=== PATIENT | male | born 1955 | race Caucasian/White ===

== ENCOUNTER 2023-09-17 13:36 | Emergency (ER) | payer BC, SELFPAY ==
[2023-09-17 13:39] VITALS: BP 122/74
--- NOTE | 2023-09-17 14:07 | ED.GENMED ---
History of Present Illness
General
Chief Complaint: Urinary Symptoms
Source: patient
Time Seen by Provider: 09/17/23 13:56
Travel History
Have you had any contact with someone who has COVID-19?: No
Do you have any symptoms of coronavirus? Fever > 100 degrees, chills, cough, shortness of breath, sore throat, loss of taste or smell, muscle aches, or headache?: No
History of Present Illness
History of Present Illness:
67-year-old male with past medical history of chronic kidney disease presenting to the emergency department for evaluation of urinary frequency, urgency and dysuria x 2 days that feels similar to previous urinary tract infection that patient had
back in September 2021. He denies any back or flank pain, nausea, vomiting, fevers, chills, rigors or any other concerns. Has not attempted any medications for relief prior to arrival.
Past History
Past History
ED Past Medical History: Renal failure and Other (CKD)
ED Past Surgical History: Orthopedic, Tonsilectomy and Other
Social History
Tobacco: Non-smoker
Alcohol: None
Drug: None
Personal: Single
Living: alone
Review of Systems
Review of Systems
All Other Systems: ROS reviewed and negative except as documented in HPI and ROS
Phy Exam
Physical Exam
Physical Exam:
GENERAL: Alert , in no apparent distress
EYE: conjunctiva clear
NECK: Supple
ENT: o/p clr, mmm.
CARDIAC: Regular rate and rhythm
LUNGS: Clear breath sounds bilaterally, no acute respiratory distress, no wheezes/rales/rhonchi
Abdomen: Soft, nontender, nondistended, no CVA tenderness
NEUROLOGICAL: Alert and oriented
SKIN: Warm and dry, skin intact.
MUSCULOSKELETAL: well perfused.
PSYCH: Normal and appropriate interaction.
Scores
Heart Failure Risk
Heart Failure Risk Score: Not Applicable
Heart Score for Chest Pain Patients
STEMI patient?: Not applicable
Withdrawal Assessment of Alcohol
Withdrawal Assessment Completed?: Not applicable
Course
Orders/Labs/Results
Orders:
Orders
09/17/23 14:05
Urinalysis Reflex To Culture Urgent
Date Specimen was Collected: 09/17/23
Time Specimen was Collected: 14:00
Urine Microscopic Reflex Cult Urgent
Urine Culture Urgent
DYAN Source: U
Specimen Description:
Date Specimen was Collected: 09/17/23
Time Specimen was Collected: 14:00
09/17/23 14:24
Sulfamethox./Trimethoprim Ds [Bactrim Ds 800 mg/160 mg] 1 tablet PO NOW STA
Abnormal Lab Results
09/17/23
14:05
Ur Occult Blood Reflex 4+ A
(Negative)
Urine Nitrite (Reflex) Positive A
(Negative)
Leukocyte Esterase Rfl 2+ A
(Negative)
Urine RBC 16-20 A /HPF
(0-2)
Urine WBC (Reflex) >100 A /HPF
(0-5)
Urine Bacteria (Reflex) Moderate A
(Negative)
Urine Albumin (Reflex) 2+ A
(Neg - Trace)
Vital Signs
Initial and Last Documented VS:
Initial Vital Signs
Temp Pulse Resp BP Pulse Ox
98.4 F 65 18 122/74 100
09/17/23 13:39 09/17/23 13:39 09/17/23 13:39 09/17/23 13:39 09/17/23 13:39
Last Documented Vital Signs
Temp Pulse Resp BP Pulse Ox
98.4 F 65 18 122/74 100
09/17/23 13:39 09/17/23 13:39 09/17/23 13:39 09/17/23 13:39 09/17/23 13:39
MDM/Problems Addressed
Differential Diagnosis Includes:
Urinary tract infection, cystitis, pyelonephritis, worsening of chronic kidney disease, urinary retention
MDM/Problems Addressed:
67-year-old male presenting the emergency department for evaluation of urinary frequency/urgency/dysuria x 2 days. Feels similar to previous urinary tract infection. No other systemic symptoms or signs of infection. Patient is overall
well-appearing with reassuring physical exam. Noted history for chronic kidney disease. Will check a urinalysis. Reassessment following. Patient states that his GFR on blood work within the last 6 months was 39.
Chronic conditions affecting care: Kidney disease
*Pulse Oximetry
Patient hypoxic: no
*Critical Care Note
Total Time (30-74mins, 75-104mins- exclusive of procedures): Not Applicable
Patient Management
Escalation/DeEscalation of care consider admission/obs:
Patient's urinalysis shows nitrite positive, 2+ leukocyte esterase, greater than 100 WBCs and 4+ hematuria. Will treat for urinary tract infection with Bactrim. No previous cultures on record. Pyridium also given for bladder spasm/pain. Patient
will follow-up with primary care provider. Aware of return precautions.
ED Attending Note
-
Portions of this chart may have been created with voice recognition software.� Occasional wrong word or��sound alike� substitutions may have occurred due to the inherent limitations of voice recognition software.
Discharge Plan
Departure
Patient Disposition: Home (Routine Discharge)
Date of Disposition: 09/17/23
Time of Disposition: 14:18
Patient with high blood pressure during this ER visit?: No
Discharge Problem:
Urinary tract infection
Instructions: Urinary Tract Infection, Adult (DC)
Prescriptions:
New
sulfamethoxazole-trimethoprim [Bactrim DS] 800-160 mg tablet
1 tab PO BID 7 Days Qty: 14 0RF
phenazopyridine [Pyridium] 200 mg tablet
200 mg PO TID PRN (Reason: Pain) Qty: 6 0RF
No Action
brinzolamide 1 % Drops,Suspension
1 drp BOTH EYES TID
Laxative (bisacodyl) 5 mg Tablet
5 mg PO DAILY
melatonin 5 mg Tablet
15 mg PO HS
Linzess 290 mcg Capsule
290 mcg PO DAILY
potassium chloride 20 mEq Tablet Extended Release
40 meq PO DAILY
Senna Plus 8.6-50 mg Capsule
3 tab PO DAILY
Interventions
Interventions:
*General Assessment Last Done: 09/17/23 13:39
*ED COVID-19 Vaccine History Last Done: 09/17/23 13:39
Discharge Date and Time
Print Language: ESTONIAN
[2023-09-17 14:14] LABS: Urine Albumin 2+ (Neg - Trace); Urine Bilirubin Negative (Negative); Urine Character Clear (Clear); Urine Color Yellow; Urine Glucose Negative (Negative); Urine Ketone Negative (Negative); Urine Leukocyte 2+ (Negative); Urine Nitrite Positive (Negative); Urine Occult Blood 4+ (Negative); Urine Urobilinogen Negative (Neg - 1+)
[2023-09-17 14:26] LABS: Urine Squamous Cell 0-2 /LPF (Few)
[2023-09-17 14:27] LABS: Urine Bacteria Moderate (Negative); Urine Red Blood Cell 16-20 /HPF (0-2); Urine White Cell >100 /HPF (0-5)
[2023-09-17] MEDS: BACTRIM DS 800 MG/160 MG 1 TABLET PO (14:40)
== END 2023-09-17 15:05 | disposition home or self-care (01) ==
LOC: EMR 13:36
PROVIDERS: Physician Assistant Medical; EMERGENCY PHYSICIAN Emergency Medicine
DX: N39.0 Urinary tract infection, site not specified (principal); N32.89 Other specified disorders of bladder; N19 Unspecified kidney failure; Z87.440 Personal history of urinary (tract) infections
CPT/HCPCS: 99283; 81003; 81015; 87077; 87086; 87186

== ENCOUNTER 2023-09-20 13:32 | Emergency (ER) | payer BC, MEDICARE, SELFPAY ==
[2023-09-20 13:41] VITALS: BP 126/75
--- NOTE | 2023-09-20 14:51 | CON.ID ---
Consultation
-
Date/Time Consultation Requested: 09/20/23 14:23
Date/Time Consultation Performed: 09/20/23 14:51
Requesting Provider: Elizabeth Villeda
Performing Provider: Dr Hoffman
Reason for Consultation: prostatitis
Chief Complaint / Past History
Chief Complaint
dysuria
History of Present Illness
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 Found to have UTI and initially started on bactrim
then found to have MDRO pseudomonas and I was called for antibiotic recs.
No recent antibiotics, no extended time in health care settings, not around farm animals, doesnt have sex with other men, no getting antibiotics from other countries.
Since presentation here no recorded fevers, bp stable wbc 5.7, no left shift, cr 1.8 unknown baseline, ua 09/16 >100 wbc/hpf, urine culture 100k Pseudomonas, patient had a dose of meropenem at my recommendation.
Past History
Additional Past Medical History:
CKD
Additional Past Surgical History:
orthopedic, tonsillectomy
Allergy History:
No Known Allergies Allergy (Verified 09/17/23 13:42)
Medications Reviewed: Yes
Social History
Tobacco: Non-Smoker
Alcohol: None
Drug: None
Family History
Family History: Not Pertinent
Review of Systems
Review of Systems
General: Negative Fever or Chills
All systems: All other systems were reviewed and were negative
Vital Signs
Temp Pulse Resp BP Pulse Ox
98 F 55 18 126/75 99
09/20/23 13:41 09/20/23 13:41 09/20/23 13:41 09/20/23 13:41 09/20/23 13:41
Physical Exam
Physical Exam
Constitutional: No Acute Distress
Cardiovascular: Regular Rate and S1/S2; Negative Murmur or Rub
Pulmonary: Clear and Symmetric; Negative Wheezes, Rales or Rhonchi
Gastrointestinal: Soft, Non Tender, Non Distended and Normal Bowel Sounds
Genito-Urinary: Suprapubic Tenderness; Negative CVA Tenderness
Skin: Warm and Dry; Negative Rash or Jaundice
Microbiology Results
Urine Culture Final 09/20/23-839
CC: Greater than 100,000 CFU/ML Pseudomonas aeruginosa
Organism 1 Pseudomonas aeruginosa
1. Pseudomonas aeruginosa
M.I.C. RX
--------- ---
Cefepime 8 S
Ceftazidime 8 S
Ciprofloxacin >2 R
Gentamicin >8 R
Levofloxacin >4 R
Meropenem 2 S
Piperacillin/Tazobactam <=16 S
Tobramycin 8 I
Assessment / Plan
Prostatitis due to MDRO Pseudomonas
- plan 2 weeks of IV meropenem
- midline
- my office is setting up home IV antibiotics
- follow up PRN
Care Review
Plan reviewed with: Other Provider ([employer]IB[employer] TAKER OFF - Day; abx plan)
--- NOTE | 2023-09-20 15:06 | ED.GENMED ---
History of Present Illness
General
Chief Complaint: Urinary Symptoms
Time Seen by Provider: 09/20/23 15:05
Travel History
Have you had any contact with someone who has COVID-19?: No
Do you have any symptoms of coronavirus? Fever > 100 degrees, chills, cough, shortness of breath, sore throat, loss of taste or smell, muscle aches, or headache?: No
History of Present Illness
History of Present Illness:
67-year-old male returns to the emergency department for initiation of IV antibiotics due to a Pseudomonas UTI with complicated resistance pattern. Infectious disease has been made aware and the patient is to have midline IV placement and be set up
for outpatient infusions. He reports worsening dysuria despite outpatient antibiotics
Past History
Past History
ED Past Medical History: Renal failure and Other (CKD)
ED Past Surgical History: Orthopedic, Tonsilectomy and Other
Social History
Tobacco: Non-smoker
Alcohol: None
Drug: None
Personal: Single
Living: alone
Review of Systems
Review of Systems
Allergies reviewed?: Yes
All Other Systems: ROS reviewed and negative except as documented in HPI and ROS
Phy Exam
Physical Exam
Physical Exam:
GEN: Well appearing, NAD, WDWN
HEENT: Oral mucosa moist, no scleral icterus
Cardiac: Regular rate
Lung: No respiratory distress, no tachypnea
MSK: No gross deformity or injuries
Skin: Good color, no pallor or jaundice, no rashes
Neuro: AO x3, moves all extremities freely
Psych: Calm, cooperative
Course
Orders/Labs/Results
Orders:
Orders
09/20/23 14:23
INFECTIOUS DISEASE CONSULT Urgent
Consulting Provider: Kera Hoffman
Was physician already notified: Yes
Reason for consult: UTI
09/20/23 14:47
Midline IV As Directed
Comment:: urgent, discharge dependent
09/20/23 15:03
Complete Blood Count/With Diff Urgent
Comprehensive Metabolic Panel Urgent
09/20/23 15:27
Meropenem [Merrem] 2,000 mg 0.9% Sodium Chloride 100 ml [Nss] 60 ml IV NOW
Abnormal Lab Results
09/20/23
15:03
RBC 3.78 L 10^6/uL
(4.70-6.10)
Hgb 12.4 L g/dL
(13.0-18.0)
Hct 36.3 L %
(39.0-52.0)
MCV 96.0 H fL
(80.0-94.0)
MCH 32.8 H pg
(27.0-31.0)
Chloride 108 H mmol/L
(98-107)
Carbon Dioxide 18 L mmol/L
(22-30)
BUN 31 H mg/dl
(9-20)
Creatinine 1.8 H mg/dL
(0.7-1.3)
09/20/23 15:03
09/20/23 15:03
Vital Signs
Initial and Last Documented VS:
Initial Vital Signs
Temp Pulse Resp BP Pulse Ox
98 F 55 18 126/75 99
09/20/23 13:41 09/20/23 13:41 09/20/23 13:41 09/20/23 13:41 09/20/23 13:41
Last Documented Vital Signs
Temp Pulse Resp BP Pulse Ox
98 F 57 18 97/68 100
09/20/23 13:41 09/20/23 17:38 09/20/23 13:41 09/20/23 17:38 09/20/23 17:38
MDM/Problems Addressed
MDM/Problems Addressed:
Patient seen in consultation by infectious disease and outpatient antibiotic infusions coordinated by ID as well as case management. Patient is clinically stable and labs are reassuring, no indication for hospitalization
*Critical Care Note
Total Time (30-74mins, 75-104mins- exclusive of procedures): Not Applicable
ED Attending Note
-
Portions of this chart may have been created with voice recognition software.� Occasional wrong word or��sound alike� substitutions may have occurred due to the inherent limitations of voice recognition software.
Discharge Plan
Departure
Patient Disposition: Home (Routine Discharge)
Date of Disposition: 09/20/23
Time of Disposition: 17:17
Patient with high blood pressure during this ER visit?: No
Discharge Problem:
Pseudomonas urinary tract infection
Instructions: Urinary Tract Infection, Adult (DC), How to care for a midline IV catheter
Prescriptions:
No Action
brinzolamide 1 % Drops,Suspension
1 drp BOTH EYES TID
Laxative (bisacodyl) 5 mg Tablet
5 mg PO DAILY
melatonin 5 mg Tablet
15 mg PO HS
Linzess 290 mcg Capsule
290 mcg PO DAILY
potassium chloride 20 mEq Tablet Extended Release
40 meq PO DAILY
Senna Plus 8.6-50 mg Capsule
3 tab PO DAILY
sulfamethoxazole-trimethoprim [Bactrim DS] 800-160 mg tablet
1 tab PO BID 7 Days Qty: 14 0RF
phenazopyridine [Pyridium] 200 mg tablet
200 mg PO TID PRN (Reason: Pain) Qty: 6 0RF
Referrals:
UNKNOWN - PT DOES,NOT KNOW [Family Provider] -
Activity Restrictions/Additional Instructions:
Flush the line with saline syringe once daily
You will be contacted tomorrow regarding outpatient infusion of antibiotics
Interventions
Interventions:
*Risk Screen - Suicide Last Done: 09/20/23 16:42
*Neglect/Abuse Screening Last Done: 09/20/23 16:42
*Nursing Disposition Last Done: 09/20/23 17:40
ED-Male Genitourinary Assessment Last Done: 09/20/23 16:42
Discharge Date and Time
Discharge Date/Time: 09/20/23 17:40
Print Language: ETHIOPIAN
[2023-09-20 15:28] LABS: % Basophils 0.4 % (0-2); % Eosinophils 1.8 % (0-6); % Immature Granulocytes 0.2 % (0-0.5); % Lymphocytes 21.9 % (20.5-51.1); % Monocytes 7.4 % (1.7-9.3); % Neutrophils 68.3 % (42.2-75.2); Absolute Eosinophils 0.1 10^3/uL (0-0.7); Absolute Lymphocytes 1.2 10^3/uL (1.2-3.4); Absolute Monocytes 0.4 10^3/uL (0.1-0.6); Absolute Neutrophils 3.9 10^3/uL (1.4-6.5); Hematocrit 36.3 % (39.0-52.0); Hemoglobin 12.4 g/dL (13.0-18.0); Mean Corp Hgb Conc. 34.2 g/dL (33.0-37.0); Mean Corpuscular Hgb 32.8 pg (27.0-31.0); Nucleated Red Blood Cells % 0 % (-); Platelet Count 210 10^3/uL (130-400); Red Blood Cell Count 3.78 10^6/uL (4.70-6.10); Red Cell Dist. Width 13.1 % (11.5-14.5); White Blood Cell Count 5.7 10^3/uL (4.8-10.8)
[2023-09-20 15:43] LABS: ALT (SGPT) 24 U/L (0-50); AST (SGOT) 29 U/L (17-59); Alkaline Phosphatase 87 U/L (38-126); Blood Urea Nitrogen 31 mg/dl (9-20); Calcium 9.2 mg/dl (8.4-10.2); Carbon Dioxide 18 mmol/L (22-30); Chloride 108 mmol/L (98-107); Glucose 97 mg/dl (70-99); Potassium 3.9 mmol/L (3.5-5.1); Sodium 137 mmol/L (135-145); Total Bilirubin 0.3 mg/dl (0.2-1.3); eGFR 41.26
[2023-09-20] MEDS: MERREM 100 MG IV (15:51)
--- NOTE | 2023-09-20 17:17 | CM ---
Alert awake oriented patient who lives alone . Currently he needs to get home because he is watching dogs at [address], [place]. He is independent in driving and all ADLs. Confirmed with patient KRYSTA Alonzo is his primary with pt and
admission dept at . He is still working and has part A with Medicare only. Spoke with Wandy at [facility] [phone]. Additional information given to [facility] Ht 6-2 and wt 160lb., last 4 digits of SS #, Midline placed information faxed .
He uses no adaptive devices.
He has never needed VN nor SNF hx.
Pharmacy [facility]
PCP from [facility] He forgets the name
PLAN Home with [facility] Maggie to contact patient tomorrow with his Out of pocket and start antibiotics infusion teaching
Spoke with patient informed that [facility] to let him know cost of med and teach him infusion tomorrow.Pt agrees with plan .
[2023-09-20 17:38] VITALS: BP 97/68
== END 2023-09-20 17:40 | disposition home or self-care (01) ==
LOC: EMR 13:32
PROVIDERS: CONSULT PHYSICIAN Student in an Organized Health Care Education/Training Program; EMERGENCY PHYSICIAN Student in an Organized Health Care Education/Training Program
DX: N39.0 Urinary tract infection, site not specified (principal); B96.5 Pseudomonas (aeruginosa) (mallei) (pseudomallei) as the cause of diseases classified elsewhere
CPT/HCPCS: 36569; 99285; 96374; 80053; 85025; J2185

== ENCOUNTER 2023-09-22 13:45 | Emergency (ER) | payer BC, MEDICARE, SELFPAY ==
[2023-09-22 13:57] VITALS: BP 120/61
[2023-09-22 14:23] LABS: Urine Albumin Trace (Neg - Trace); Urine Bilirubin Negative (Negative); Urine Character Very Cloudy (Clear); Urine Color Yellow; Urine Glucose Negative (Negative); Urine Ketone Trace (Negative); Urine Leukocyte 2+ (Negative); Urine Nitrite Negative (Negative); Urine Occult Blood 4+ (Negative); Urine Specific Gravity 1.025 (<1.030); Urine Urobilinogen Negative (Neg - 1+)
[2023-09-22 14:43] LABS: Urine Bacteria Few (Negative); Urine Squamous Cell 0-2 /LPF (Few)
[2023-09-22 14:44] LABS: Urine Red Blood Cell 50-60 /HPF (0-2); Urine White Cell 16-20 /HPF (0-5)
[2023-09-22] MEDS: TYLENOL 1000 MG PO (15:36)
[2023-09-22 15:38] VITALS: BMI 21.4
--- NOTE | 2023-09-22 15:40 | ED.GENMED ---
History of Present Illness
General
Chief Complaint: Male Genito-Urinary Symptoms
Source: patient and records
Exam Limitations: none
Time Seen by Provider: 09/22/23 15:05
Nursing documentation reviewed up to this point in time: agreed with
Travel History
Have you had any contact with someone who has COVID-19?: No
Do you have any symptoms of coronavirus? Fever > 100 degrees, chills, cough, shortness of breath, sore throat, loss of taste or smell, muscle aches, or headache?: No
History of Present Illness
History of Present Illness:
Patient is a 67-year-old male who returns to the emergency department for right flank and back pain that started today. Patient denies fever. Patient was seen 2 days ago and had a consult with infectious disease after having Pseudomonas in his
urine. Patient continues to have dysuria, frequency and urgency. Patient has difficulty urinating. Patient does have a history of kidney stones and kidney disease. Patient denies hematuria. Patient denies any nausea, vomiting or diarrhea.
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 Patient is on IV antibiotics through infectious disease.
Past History
Past History
ED Past Medical History: Renal failure and Other (CKD)
ED Past Surgical History: Orthopedic, Tonsilectomy and Other
Social History
Tobacco: Non-smoker
Alcohol: None
Drug: None
Personal: Single
Living: alone
Review of Systems
Review of Systems
All Other Systems: ROS reviewed and negative except as documented in HPI and ROS
Constitutional: Denies fever or chills
Respiratory: Reports no symptoms
Cardiac: Reports no symptoms
ABD/GI: Reports abdominal pain; Denies nausea, vomiting, diarrhea or constipated
: Reports dysuria, frequency, flank pain, difficulty voiding and urgency; Denies bleeding
Musculoskeletal: Reports back pain
Skin: Reports no symptoms
Neurological: Reports no symptoms
Hematologic/Lymphatic: Reports no symptoms
Psychiatric: Reports no symptoms
Phy Exam
Physical Exam
Physical Exam:
Physical Exam
General: mild to moderate distress, alert and appropriate, well nourished, well hydrated
HENT: Normocephalic, supple with no lymphadenopathy, no thyromegaly
Eyes: Clear sclera, conjuctiva without injection, chronic nystagmus
Heart: Regular rhythm and rate. No S3, S4. No murmur.
Lungs: No respiratory distress, no stridor, lung sounds clear and equal bilaterally
Abdomen: Soft, minimal right-sided tenderness without guarding or rebound, no organomegaly, right CVA tenderness, BS good
Neuro: Alert and oriented x 3, CN II - XII intact, no motor focality, no cerebellar dysfunction
Skin: no rash
Psychiatric: well kept. interactive and cooperative
Extremities: No edema, cyanosis, tenderness, Good and equal peripheral pulses.
Course
Orders/Labs/Results
Orders:
Orders
09/22/23 14:14
Urinalysis Reflex To Culture Urgent
Date Specimen was Collected: 09/22/23
Time Specimen was Collected: 14:01
Urine Microscopic Reflex Cult Urgent
Urine Culture Urgent
DYAN Source: U
Specimen Description:
Date Specimen was Collected: 09/22/23
Time Specimen was Collected: 14:01
09/22/23 15:14
Acetaminophen [Tylenol] 1,000 mg PO NOW STA
09/22/23 15:15
CT Abd/pel Without Iv Or Oral Urgent
Comment:
Reason For Exam: right renal colic
09/22/23 15:44
Complete Blood Count/With Diff Urgent
Comprehensive Metabolic Panel Urgent
Abnormal Lab Results
09/22/23 09/22/23
14:14 15:44
RBC 3.57 L 10^6/uL
(4.70-6.10)
Hgb 11.7 L g/dL
(13.0-18.0)
Hct 34.5 L %
(39.0-52.0)
MCV 96.6 H fL
(80.0-94.0)
MCH 32.8 H pg
(27.0-31.0)
Absolute Lymphs (auto) 0.7 L 10^3/uL
(1.2-3.4)
Neutrophils % 80.8 H %
(42.2-75.2)
Lymphocytes % 10.7 L %
(20.5-51.1)
Chloride 108 H mmol/L
(98-107)
Carbon Dioxide 20 L mmol/L
(22-30)
BUN 34 H mg/dl
(9-20)
Creatinine 1.8 H mg/dL
(0.7-1.3)
Urine Ketones Trace A
(Negative)
Ur Occult Blood Reflex 4+ A
(Negative)
Leukocyte Esterase Rfl 2+ A
(Negative)
Urine RBC 50-60 A /HPF
(0-2)
Urine WBC (Reflex) 16-20 A /HPF
(0-5)
Urine Bacteria (Reflex) Few A
(Negative)
09/22/23 15:44
09/22/23 15:44
Vital Signs
Initial and Last Documented VS:
Initial Vital Signs
Temp Pulse Resp BP Pulse Ox
98.7 F 63 18 120/61 100
09/22/23 13:57 09/22/23 13:57 09/22/23 13:57 09/22/23 13:57 09/22/23 13:57
Last Documented Vital Signs
Temp Pulse Resp BP Pulse Ox
98.7 F 63 18 101/69 100
09/22/23 13:57 09/22/23 13:57 09/22/23 13:57 09/22/23 17:04 09/22/23 17:15
*Radiology
Radiology exam reviewed: radiology read reviewed (Moderate acute right hydroureter and nephrosis secondary to a 4.8 mm obstructing calculus at the right UVJ)
*Pulse Oximetry
Patient hypoxic: no
*EKG
Interpreted by ED Provider?: NA
*Customer Solutions Supervisor Interpretation
Rate: Customer Solutions Supervisor- N/A
*Critical Care Note
Total Time (30-74mins, 75-104mins- exclusive of procedures): Not Applicable
Update Note
Update Note:
Patient urinated and the pain resolved. Believe he has passed the stone. Patient's urine is actually improving with regards to infection. In addition the patient's renal numbers look good. Patient will be discharged.
ED Attending Note
-
Portions of this chart may have been created with voice recognition software.� Occasional wrong word or��sound alike� substitutions may have occurred due to the inherent limitations of voice recognition software.
Discharge Plan
Departure
Patient Disposition: Home (Routine Discharge)
Date of Disposition: 09/22/23
Time of Disposition: 18:25
Patient with high blood pressure during this ER visit?: No
Condition: Fair
Covid-19: Not Applicable
Discharge Problem:
Right ureterolithiasis, Renal colic on right side, UTI resolving
Instructions: Kidney Stone, Adult ED
Prescriptions:
No Action
brinzolamide 1 % Drops,Suspension
1 drp BOTH EYES TID
Laxative (bisacodyl) 5 mg Tablet
5 mg PO DAILY
melatonin 5 mg Tablet
15 mg PO HS
Linzess 290 mcg Capsule
290 mcg PO DAILY
potassium chloride 20 mEq Tablet Extended Release
40 meq PO DAILY
Senna Plus 8.6-50 mg Capsule
3 tab PO DAILY
sulfamethoxazole-trimethoprim [Bactrim DS] 800-160 mg tablet
1 tab PO BID 7 Days Qty: 14 0RF
phenazopyridine [Pyridium] 200 mg tablet
200 mg PO TID PRN (Reason: Pain) Qty: 6 0RF
Referrals:
Roger Cantu MD [Family Provider] - Follow up in 2-3 days
Activity Restrictions/Additional Instructions:
Make sure to drink plenty of fluids and continue present medications and therapy. Any increasing pain, fever, etc. please return immediately. You may use acetaminophen 1000 mg every 6 hours for pain.
Interventions
Interventions:
*Risk Screen - Suicide Last Done: 09/22/23 14:00
*General Assessment Last Done: 09/22/23 14:00
*Neglect/Abuse Screening Last Done: 09/22/23 14:00
ED- Fall Risk Assessment Last Done: 09/22/23 15:48
*ED COVID-19 Vaccine History Last Done: 09/22/23 15:48
ED-Male Genitourinary Assessment Last Done: 09/22/23 15:48
Discharge Date and Time
Print Language: LAO
[2023-09-22 15:41] VITALS: BP 103/72
[2023-09-22 15:53] LABS: % Basophils 0.3 % (0-2); % Eosinophils 0.8 % (0-6); % Immature Granulocytes 0.5 % (0-0.5); % Lymphocytes 10.7 % (20.5-51.1); % Monocytes 6.9 % (1.7-9.3); % Neutrophils 80.8 % (42.2-75.2); Absolute Eosinophils 0.1 10^3/uL (0-0.7); Absolute Lymphocytes 0.7 10^3/uL (1.2-3.4); Absolute Monocytes 0.4 10^3/uL (0.1-0.6); Hematocrit 34.5 % (39.0-52.0); Hemoglobin 11.7 g/dL (13.0-18.0); Mean Corp Hgb Conc. 33.9 g/dL (33.0-37.0); Mean Corpuscular Hgb 32.8 pg (27.0-31.0); Mean Corpuscular Volume 96.6 fL (80.0-94.0); Mean Platelet Volume 9.6 fL (7.4-10.4); Nucleated Red Blood Cells % 0 % (-); Platelet Count 174 10^3/uL (130-400); Red Blood Cell Count 3.57 10^6/uL (4.70-6.10); Red Cell Dist. Width 12.9 % (11.5-14.5); White Blood Cell Count 6.2 10^3/uL (4.8-10.8)
[2023-09-22 16:07] LABS: ALT (SGPT) 20 U/L (0-50); AST (SGOT) 27 U/L (17-59); Albumin 3.7 g/dl (3.5-5.0); Alkaline Phosphatase 93 U/L (38-126); Blood Urea Nitrogen 34 mg/dl (9-20); Calcium 9.3 mg/dl (8.4-10.2); Carbon Dioxide 20 mmol/L (22-30); Chloride 108 mmol/L (98-107); Estimated Creatinine Clearance 44 ml/min; Glucose 87 mg/dl (70-99); Potassium 3.9 mmol/L (3.5-5.1); Sodium 136 mmol/L (135-145); Total Bilirubin 0.3 mg/dl (0.2-1.3); Total Protein 6.6 g/dl (6.3-8.2); eGFR 41.26
[2023-09-22 17:04] VITALS: BP 101/69
[2023-09-22 18:00] VITALS: BP 106/60
== END 2023-09-22 18:46 | disposition home or self-care (01) ==
LOC: EMR 13:45
PROVIDERS: Emergency Medicine; EMERGENCY PHYSICIAN Emergency Medicine; FAMILY PHYSICIAN Internal Medicine
DX: N20.2 Calculus of kidney with calculus of ureter (principal); N39.0 Urinary tract infection, site not specified; N18.9 Chronic kidney disease, unspecified; Z87.442 Personal history of urinary calculi
CPT/HCPCS: 99284; 74176; 80053; 81003; 81015; 85025; 87086

== ENCOUNTER 2024-12-26 10:40 | Emergency (ER) | payer BC, SELFPAY ==
[2024-12-26 10:47] VITALS: BP 122/74
[2024-12-26 11:09] VITALS: BMI 20.5
[2024-12-26 11:37] LABS: Hematocrit 38.9 % (39.0-52.0); Hemoglobin 13.2 g/dL (13.0-18.0); Mean Corp Hgb Conc. 33.9 g/dL (33.0-37.0); Mean Corpuscular Volume 97.7 fL (80.0-94.0); Nucleated Red Blood Cells % 0 % (-); Platelet Count 147 10^3/uL (130-400); Red Cell Dist. Width 12.9 % (11.5-14.5)
[2024-12-26 11:39] LABS: Urine Character Clear (Clear)
[2024-12-26 11:49] LABS: ALT (SGPT) 30 U/L (0-50); AST (SGOT) 31 U/L (17-59); Albumin 4.3 g/dl (3.5-5.0); Alkaline Phosphatase 69 U/L (38-126); Blood Urea Nitrogen 31 mg/dl (9-20); Calcium 9.3 mg/dl (8.4-10.2); Carbon Dioxide 28 mmol/L (22-30); Chloride 104 mmol/L (98-107); Estimated Creatinine Clearance 53 ml/min; Glucose 110 mg/dl (70-99); Potassium 4.3 mmol/L (3.5-5.1); Sodium 137 mmol/L (135-145); Total Protein 7.0 g/dl (6.3-8.2); eGFR 55.43
[2024-12-26 11:51] LABS: Urine Red Blood Cell >100 /HPF (0-2); Urine Squamous Cell 0-2 /LPF (Few)
--- NOTE | 2024-12-26 13:23 | ED.GENMED ---
History of Present Illness
General
Chief Complaint: Male Genito-Urinary Symptoms
Source: patient
Exam Limitations: none
Time Seen by Provider: 12/26/24 11:14
Nursing documentation reviewed up to this point in time: agreed with
History of Present Illness
History of Present Illness:
Patient presents to ED secondary to burning sensation with urination over the past 2 days, similar to when he had been treated in the past for urinary tract infection. Denies fever or chills. Denies difficulty with voiding. Denies back pain.
Denies abdominal pain. Denies nausea or vomiting. Denies recent change in medications or diet. Denies recent illness. In addition, patient reports feeling depressed and anxious with having to sell his current house and having to purchase new
home. Patient has had thoughts of suicide, but denies any similar feelings at this time. Denies previous history of suicidal attempts. Over 15 years ago, patient does report taking medication for depression, which he is no longer taking.
Past History
Past History
ED Past Medical History: Renal failure and Other (CKD)
ED Past Surgical History: Orthopedic, Tonsilectomy and Other
Social History
Tobacco: Non-smoker
Alcohol: None
Drug: None
Personal: Single
Living: alone
Review of Systems
Review of Systems
Allergies reviewed?: Yes
All Other Systems: ROS reviewed and negative except as documented in HPI and ROS
Constitutional: Reports no symptoms
ABD/GI: Reports no symptoms
: Reports dysuria
Musculoskeletal: Reports no symptoms
Skin: Reports no symptoms
Neurological: Reports no symptoms
Psychiatric: Reports depression
Phy Exam
Physical Exam
Physical Exam:
Physical Exam
General: no apparent distress, not acutely ill. afebrile
Head: nc/at. eomi
Neck: supple. no meningeal signs.
Abdomen: normal bowel sounds. not tender.
Neuro: alert and oriented x 3. no focal neurological deficits
Skin: no rash
Psychiatric: well kept. interactive and cooperative
Extremities: no edema. no calf tenderness.
Course
Orders/Labs/Results
Orders:
Orders
12/26/24 11:08
Crisis Consult Urgent
Reason for Consult: SI
12/26/24 11:13
Complete Blood Count/With Diff Urgent
Comprehensive Metabolic Panel Urgent
Urinalysis Urgent
Date Specimen was Collected: 12/26/24
Time Specimen was Collected: 11:08
Urine Microscopic Urgent
Date Specimen was Collected: 12/26/24
Time Specimen was Collected: 11:08
Urine Culture Urgent
DYAN Source: U
Specimen Description:
Date Specimen was Collected: 12/26/24
Time Specimen was Collected: 11:08
12/26/24 12:24
Add On - Microbiology Urgent
Tests Added?: urine culture
Abnormal Lab Results
12/26/24
11:13
WBC 3.7 L 10^3/uL
(4.8-10.8)
RBC 3.98 L 10^6/uL
(4.70-6.10)
Hct 38.9 L %
(39.0-52.0)
MCV 97.7 H fL
(80.0-94.0)
MCH 33.2 H pg
(27.0-31.0)
MPV 10.5 H fL
(7.4-10.4)
Absolute Lymphs (auto) 1.1 L 10^3/uL
(1.2-3.4)
BUN 31 H mg/dl
(9-20)
Creatinine 1.4 H mg/dL
(0.7-1.3)
Glucose 110 H mg/dl
(70-99)
Urine Occult Blood 4+ A
(Negative)
Ur Leukocyte Esterase 1+ A
(Negative)
Urine RBC >100 A /HPF
(0-2)
Urine Bacteria Few A
(Negative)
Urine Albumin 2+ A
(Neg - Trace)
12/26/24 11:13
12/26/24 11:13
Vital Signs
Initial and Last Documented VS:
Initial Vital Signs
Temp Pulse Resp BP Pulse Ox
98.7 F 60 18 122/74 98
12/26/24 10:47 12/26/24 10:47 12/26/24 10:47 12/26/24 10:47 12/26/24 10:47
Last Documented Vital Signs
Temp Pulse Resp BP Pulse Ox
98.7 F 60 18 122/74 98
12/26/24 10:47 12/26/24 10:47 12/26/24 10:47 12/26/24 10:47 12/26/24 13:27
MDM/Problems Addressed
MDM/Problems Addressed:
Patient evaluated in ED by [facility] blasting worker, who provided patient with outpatient resources, for his ongoing symptoms of depression. Patient does not wish to receive any acute treatment at this time. Patient does not have any suicidal
homicidal thoughts at this time. No indication for 302 petition at this time.
Despite initial urinalysis test result, based on his symptoms along with his previous treatment, we will start patient on empiric course of antibiotics, ciprofloxacin x 5 days. Patient will be referred to urology for an outpatient consultation.
Patient advised to return to ED with worsening symptoms.
*Pulse Oximetry
SaO2: 98
Oxygen Mode of Delivery: Room air
Patient hypoxic: no
*Critical Care Note
Total Time (30-74mins, 75-104mins- exclusive of procedures): Not Applicable
ED Attending Note
-
Portions of this chart may have been created with voice recognition software.� Occasional wrong word or��sound alike� substitutions may have occurred due to the inherent limitations of voice recognition software.
Discharge Plan
Departure
Patient Disposition: Home (Routine Discharge)
Date of Disposition: 12/26/24
Time of Disposition: 14:32
Patient with high blood pressure during this ER visit?: Yes
Condition: Fair
Discharge Problem:
Dysuria, Depression
Instructions: Depression in adults - ED (DC)
Prescriptions:
New
ciprofloxacin HCl 500 mg tablet
500 mg PO BID Qty: 10 0RF
No Action
brinzolamide 1 % Drops,Suspension
1 drp BOTH EYES TID
Laxative (bisacodyl) 5 mg Tablet
5 mg PO DAILY
melatonin 5 mg Tablet
15 mg PO HS
Linzess 290 mcg Capsule
290 mcg PO DAILY
potassium chloride 20 mEq Tablet Extended Release
40 meq PO DAILY
Senna Plus 8.6-50 mg Capsule
3 tab PO DAILY
sulfamethoxazole-trimethoprim [Bactrim DS] 800-160 mg tablet
1 tab PO BID 7 Days Qty: 14 0RF
phenazopyridine [Pyridium] 200 mg tablet
200 mg PO TID PRN (Reason: Pain) Qty: 6 0RF
Referrals:
Hilaria Hanks MD [Family Provider, Internal Medicine]
Jose Juan Castillo Jr., MD [Active, Urology]
Activity Restrictions/Additional Instructions:
As discussed, please follow-up with your primary care physician as well as referred to urologist for further evaluation treatment. In addition, strongly recommend following up with provided outpatient resources in regards to depression. Please
consider return to ED with worsening symptoms, i.e. fever/inability to urinate/vomiting. Your prescription has been sent electronically to [facility] pharmacy in [place].
Interventions
Interventions:
*Risk Screen - Suicide Last Done: 12/26/24 10:47
*General Assessment Last Done: 12/26/24 10:47
*Neglect/Abuse Screening Last Done: 12/26/24 10:47
*ED- Fall Risk Assessment Last Done: 12/26/24 10:47
*ED COVID-19 Vaccine History Last Done: 12/26/24 10:47
*Nursing Disposition Last Done: 12/26/24 14:58
ED-Male Genitourinary Assessment Last Done: 12/26/24 11:10
Discharge Date and Time
Discharge Date/Time: 12/26/24 14:58
Print Language: CROATIAN
== END 2024-12-26 14:58 | disposition home or self-care (01) ==
LOC: EMR 10:40
PROVIDERS: Emergency Medicine; EMERGENCY PHYSICIAN Emergency Medicine; FAMILY PHYSICIAN Hospitalist; OTHER PHYSICIAN Internal Medicine
DX: R30.0 Dysuria (principal); F32.A Depression, unspecified; R03.0 Elevated blood-pressure reading, without diagnosis of hypertension; N18.9 Chronic kidney disease, unspecified; Z87.440 Personal history of urinary (tract) infections; Z59.89 Other problems related to housing and economic circumstances
CPT/HCPCS: 99283; 80053; 81003; 81015; 85025; 87086

== ENCOUNTER → 2025-02-11 12:29 | Outpatient (REF) | payer BC, SELFPAY | LOC: HWRAD 12:29 | PROVIDERS: ATTENDING PHYSICIAN Specialist; FAMILY PHYSICIAN Hospitalist | DX: R31.0 Gross hematuria (principal) | CPT/HCPCS: 74176 ==

== ENCOUNTER 2025-04-03 06:29 | Day surgery (SDC) | payer BC, SELFPAY ==
[2025-03-28 14:04] LABS: Hematocrit 38.0 % (39.0-52.0); Hemoglobin 12.7 g/dL (13.0-18.0); Mean Corp Hgb Conc. 33.4 g/dL (33.0-37.0); Mean Corpuscular Volume 101.3 fL (80.0-94.0); Platelet Count 138 10^3/uL (130-400); Red Cell Dist. Width 13.2 % (11.5-14.5)
[2025-04-03] VITALS (10 sets, daily range): BP systolic 91–111; BP diastolic 57–68
[2025-04-03 10:16] LABS: Urine Character Clear (Clear)
[2025-04-03] MEDS: NORMOSOL-R/PLASMALYTE-A 1000 IV (10:24)
[2025-04-03 11:43] LABS: Urine Squamous Cell 0-2 /LPF (Few)
[2025-04-03 11:44] LABS: Urine Red Blood Cell 0-2 /HPF (0-2)
== END 2025-04-03 14:03 | disposition home or self-care (01) ==
LOC: SDS 06:29
PROVIDERS: ATTENDING PHYSICIAN Specialist; FAMILY PHYSICIAN Hospitalist
DX: R31.0 Gross hematuria (principal); N35.919 Unspecified urethral stricture, male, unspecified site; N35.912 Unspecified bulbous urethral stricture, male; Z79.899 Other long term (current) drug therapy; Z87.440 Personal history of urinary (tract) infections; Z87.442 Personal history of urinary calculi
CPT/HCPCS: 52351; 36415; 74420; 76000; 81003; 81015; 85027; 87086; 93005